=== PATIENT | male | born 1985 | race Caucasian/White ===

== ENCOUNTER 2019-10-11 22:19 | Inpatient (IN) | payer BC ==
[~2019-10-11] VITALS: Ht 175.3 cm; Wt 75.6 kg
[2019-10-11] MEDS ORDERED: VENL150C2 PO (22:30)
--- NOTE | 2019-10-11 22:30 | NUR ---
Dr. Noguera at bedside for MSE
[2019-10-11] MEDS ORDERED: PANTOPRAZOLE SODIUM 40 MG TABLET.DR PO ONE ×2 (22:51→23:00)
[2019-10-11] MEDS ORDERED: MAG HYDROX/AL HYDROX/SIMETH 30 ML LIQUID UDC ONE (22:51)
[2019-10-11] MEDS ORDERED: MAG HYDROX/AL HYDROX/SIMETH 30 ML LIQUID UDC PO ONE (23:00)
[2019-10-11] MEDS ORDERED: LIDOCAINE VISCUS 2% 15 ML UDC MM ONE (23:00)
[2019-10-11] MEDS ORDERED: ONDANSETRON ODT 4 MG TAB.RAPDIS ONE (23:04)
[2019-10-11] MEDS ORDERED: MORPHINE SULFATE 2 MG/1 ML DISP.SYRIN IV ONE (23:15)
[2019-10-11] MEDS ORDERED: ONDANSETRON 4 MG/2 ML VIAL IV ONE (23:15)
[2019-10-11] MEDS ORDERED: IV NORMAL SALINE 1000 ML BAG IV ONE (23:15)
[2019-10-11] MEDS ORDERED: ONDANSETRON ODT 4 MG TAB.RAPDIS SL ONE (23:15)
[2019-10-11] MEDS ORDERED: PANTOPRAZOLE SODIUM 40 MG VIAL IV ONE (23:15)
[2019-10-11] MEDS ORDERED: ONDANSETRON 4 MG/2 ML VIAL ONE (23:28)
[2019-10-11] MEDS ORDERED: PANTOPRAZOLE SODIUM 40 MG VIAL ONE (23:28)
[2019-10-11] MEDS ORDERED: MORPHINE SULFATE 2 MG/1 ML DISP.SYRIN ONE (23:28)
[2019-10-11 23:31] LABS: BASOPHILS % (AUTO) 0.3 % (0.0-2.0); EOSINOPHILS % (AUTO) 0.1 % (0.0-7.0); HEMOGLOBIN 15.1 g/dL (12.5-16.3); LYMPHOCYTES # (AUTO) 0.6 K/uL (20.0-40.0); LYMPHOCYTES % (AUTO) 3.6 % (20.5-51.5); MEAN CORPUSCULAR HGB CONC 34 g/dL (32.5-36.3); MEAN CORPUSCULAR VOLUME 90.1 fL (73.0-96.2); MONOCYTES # (AUTO) 0.7 K/uL (2.0-10.0); MONOCYTES % (AUTO) 4.3 % (0.0-11.0); NEUTROPHILS % (AUTO) 91.7 % (38.5-71.5); PLATELET COUNT (AUTO) 269 K/uL (152-348); RED BLOOD CELL COUNT(AUTO) 4.88 MIL/uL (4.06-5.63); WHITE BLOOD COUNT (AUTO) 16.3 K/uL (3.6-10.2)
[2019-10-12] MEDS ORDERED: MORPHINE SULFATE 4 MG/1 ML DISP.SYRIN IV ONE
[2019-10-12] MEDS ORDERED: MORPHINE SULFATE 4 MG/1 ML DISP.SYRIN ONE (00:03)
[2019-10-12] MEDS ORDERED: HYDROMORPHONE 1 MG/1 ML DISP.SYRIN ONE (00:30)
[2019-10-12] MEDS ORDERED: HYDROMORPHONE 1 MG/1 ML DISP.SYRIN IV ONE ×2 (00:30→02:45)
[2019-10-12 00:35] LABS: BILIRUBIN,DIRECT 0.1 mg/dL (0.0-0.2); BILIRUBIN,TOTAL 0.7 mg/dL (0.2-1.0); CREATININE 1.2 mg/dL (0.6-1.3); POTASSIUM 3.8 mmol/L (3.5-5.1); TOTAL PROTEIN, SERUM 7.7 g/dL (6.4-8.2)
[2019-10-12] MEDS ORDERED: IV NORMAL SALINE 1000 ML BAG IV ONE ×4 (01:15→14:58)
--- NOTE | 2019-10-12 02:08 | NUR ---
patient taken to CT scan via wheelchair in stable condition
--- NOTE | 2019-10-12 02:18 | NUR ---
Patient back from CT scan in stable condition. Fiance at bedside
[2019-10-12 02:35] VITALS: BP 118/60
[2019-10-12] MEDS ORDERED: PIPERACILLIN SODIUM/TAZOBACTAM 3.375 G in IV DEXTROSE 5% 50 ML IV ONE (02:45)
--- NOTE | 2019-10-12 02:45 | NUR ---
Dr. Noguera on the phone with Diane Plunkett NP
[2019-10-12] MEDS ORDERED: PIPERACILLIN/TAZOBACTAM/D5W 50 ML IV ONE (02:53)
[2019-10-12] MEDS ORDERED: HYDROCODONE/APAP 5-325MG TABLET PO PRN (03:00)
[2019-10-12] MEDS ORDERED: MAGNESIUM HYDROXIDE 30 ML LIQUID UDC PO PRN (03:00)
[2019-10-12] MEDS ORDERED: ACETAMINOPHEN 325 MG TABLET PO PRN (03:00)
[2019-10-12] MEDS ORDERED: ONDANSETRON 4 MG/2 ML VIAL IV PRN (03:00)
[2019-10-12] MEDS ORDERED: Z GUARD REMEDY PASTE 57 GM TUBE TOP PRN (03:00)
--- NOTE | 2019-10-12 03:44 | NUR ---
Pt. admitted to Med Surg , under care of Diane Plunkett MECHANICAL PRESS OPERATOR [employer] completed
--- NOTE | 2019-10-12 04:45 | NUR ---
NEW ADMIT Patient arrived via gurney and was able to ambulate to his bed. Patient is alert/oriented x3 and is complaining of pain 9/10. Patient has no significant medical history other than anxiety and depression, which is treated with prescribed Effexor, although patient is unsure of the dose he takes. Patient is Judaism and is requesting to see a instructional materials director prior to his surgery, but does not have a local [place]. I will have AM nurse followup with pocketbook maker to accommodate patient's request. All pertinent assessments have been completed. Patient is currently NPO and has scheduled lap appendectomy scheduled for 1330h today. Unable to obtain consent until patient has spoken with MD Quiles regarding the procedure. Will continue to monitor and assess.
[2019-10-12] MEDS: IV NS 1000 ML 1,000 ML IV PRN (05:14)
[2019-10-12] MEDS: HYDROMORPHONE 1 MG/1 ML DISP.SYRIN IV PRN ×4 (05:14→21:53)
[2019-10-12 06:35] LABS: BASOPHILS % (AUTO) 0.1 % (0.0-2.0); EOSINOPHILS % (AUTO) 0.1 % (0.0-7.0); HEMOGLOBIN 12.9 g/dL (12.5-16.3); LYMPHOCYTES # (AUTO) 0.8 K/uL (20.0-40.0); LYMPHOCYTES % (AUTO) 5.4 % (20.5-51.5); MEAN CORPUSCULAR HEMOGLOBIN 30.9 uug (23.8-33.4); MEAN CORPUSCULAR HGB CONC 34 g/dL (32.5-36.3); MEAN CORPUSCULAR VOLUME 90.8 fL (73.0-96.2); MONOCYTES # (AUTO) 0.8 K/uL (2.0-10.0); MONOCYTES % (AUTO) 5.6 % (0.0-11.0); NEUTROPHILS # (AUTO) 12.9 K/uL (1.8-8.9); NEUTROPHILS % (AUTO) 88.8 % (38.5-71.5); PLATELET COUNT (AUTO) 219 K/uL (152-348); RED BLOOD CELL COUNT(AUTO) 4.18 MIL/uL (4.06-5.63); WHITE BLOOD COUNT (AUTO) 14.5 K/uL (3.6-10.2)
[2019-10-12 06:50] LABS: MAGNESIUM 1.9 mg/dL (1.8-2.4); PHOSPHOROUS 3.8 mg/dL (2.5-4.9); POTASSIUM 4.2 mmol/L (3.5-5.1)
--- NOTE | 2019-10-12 07:37 | NUR ---
pt received in bed sleeping ,pt is axox4/vs are stable call light with in reach
[2019-10-12] MEDS ORDERED: PIPERACILLIN SODIUM/TAZOBACTAM 3.375 G in IV DEXTROSE 5% 50 ML IV SCH (08:00)
[2019-10-12] MEDS: PIPERACILLIN/TAZOBACTAM/D5W 3.375 G in IV DEXTROSE 5% 50 ML IV SCH ×3 (08:09→22:32)
[2019-10-12] MEDS ORDERED: LIDOCAINE HCL 1% 20 ML VIAL ONE (11:04)
[2019-10-12] MEDS ORDERED: BUPIVACAINE/EPI PF 0.25% 30 ML VIAL ONE (11:04)
[2019-10-12 11:24] VITALS: BP 98/53
--- NOTE | 2019-10-12 13:07 | NUR ---
pt is sleeping family at bed side
--- NOTE | 2019-10-12 13:08 | NUR ---
pt went to or via bed for surgery in stable condition
[2019-10-12] MEDS ORDERED: SEVOFLURANE 250 ML BOTTLE ONE (14:11)
[2019-10-12] MEDS ORDERED: BACITRACIN ZINC OINT 15 GM TUBE ONE (14:37)
[2019-10-12] MEDS ORDERED: PROPOFOL 200 MG/20 ML BOTTLE IV ONE (14:58)
[2019-10-12] MEDS ORDERED: LIDOCAINE-MPF 2% 5 ML VIAL IJ ONE (14:58)
[2019-10-12] MEDS ORDERED: ONDANSETRON 4 MG/2 ML VIAL IV ONE (14:58)
[2019-10-12] MEDS ORDERED: VECURONIUM BROMIDE 10 MG VIAL IV ONE (14:58)
[2019-10-12] MEDS ORDERED: NEOSTIGMINE METHYLSULFATE 10 MG/10 ML VIAL IM ONE (14:58)
[2019-10-12] MEDS ORDERED: DEXAMETHASONE SOD PHOSPHATE 4 MG INJ IV ONE (14:58)
[2019-10-12] MEDS ORDERED: SEVOFLURANE 250 ML BOTTLE IH ONE (14:58)
[2019-10-12] MEDS ORDERED: SUCCINYLCHOLINE CHLORIDE 200 MG/10 ML VIAL IV ONE (14:58)
[2019-10-12] MEDS ORDERED: GLYCOPYRROLATE 0.2 MG/ML VIAL IJ ONE (14:58)
--- NOTE | 2019-10-12 16:06 | NUR ---
pt received from recovery room by bed in stable condition.
[2019-10-12 16:10] VITALS: BP 106/56
[2019-10-12 16:28] VITALS: BP 105/57
[2019-10-12 19:46] VITALS: BP 98/60
--- NOTE | 2019-10-12 20:00 | NUR ---
Patient received into care, laying in bed, with fiance at bedside. Patient has no complaints of pain or discomfort at this time. IV fluids are infusing at 100mL/hr in left AC peripheral IV. All safety and fall precaution measures are in place. Call light and personal items are within reach at all times. Will continue to monitor and assess.
--- NOTE | 2019-10-12 20:05 | NUR ---
Notified by DAM TENDER ASSISTANT of elevated temp at 99.2. Initiated cooling measures.
--- NOTE | 2019-10-12 21:00 | NUR ---
Recheck of temperature reflects 98.5. Cooling measures stopped.
[2019-10-13] MEDS: HYDROCODONE/APAP 10-325 MG TABLET PO PRN ×4 (01:27→23:21)
[2019-10-13] MEDS: IV NS 1000 ML 1,000 ML IV PRN ×2 (03:40→23:21)
[2019-10-13] MEDS: PIPERACILLIN/TAZOBACTAM/D5W 3.375 G in IV DEXTROSE 5% 50 ML IV SCH ×2 (05:02→14:00)
[2019-10-13 05:10] VITALS: BP 98/60
--- NOTE | 2019-10-13 06:24 | NUR ---
Patient slept comfortably throughout night with complaints of pain addressed with prescribed analgesics, which were tolerated well with no adverse side effects noted or observed by nurse or verbalized by patient. Last analgesic given this shift was Calcium 10-325mg at 0130 and patient has had no further complaints of pain or discomfort. Patient has tolerated the clear liquid diet well, with no reports of nausea or vomiting. Patient reports passing flatus, but has had no bowel movement, however nurse can hear active bowel sounds throughout. Call light and personal items are within reach at all times. All safety and fall precaution measures remain in place.
[2019-10-13 06:40] LABS: BASOPHILS % (AUTO) 0.1 % (0.0-2.0); EOSINOPHILS # (AUTO) 0.1 K/uL (0.0-0.7); EOSINOPHILS % (AUTO) 0.4 % (0.0-7.0); HEMATOCRIT 36.9 % (36.7-47.1); HEMOGLOBIN 12.4 g/dL (12.5-16.3); LYMPHOCYTES # (AUTO) 1.5 K/uL (20.0-40.0); LYMPHOCYTES % (AUTO) 10.9 % (20.5-51.5); MEAN CORPUSCULAR HEMOGLOBIN 30.6 uug (23.8-33.4); MEAN CORPUSCULAR HGB CONC 34 g/dL (32.5-36.3); MEAN CORPUSCULAR VOLUME 91.1 fL (73.0-96.2); MONOCYTES # (AUTO) 1.2 K/uL (2.0-10.0); NEUTROPHILS % (AUTO) 79.6 % (38.5-71.5); PLATELET COUNT (AUTO) 222 K/uL (152-348); RED BLOOD CELL COUNT(AUTO) 4.05 MIL/uL (4.06-5.63); WHITE BLOOD COUNT (AUTO) 13.8 K/uL (3.6-10.2)
[2019-10-13 07:24] LABS: CREATININE 1.1 mg/dL (0.6-1.3); PHOSPHOROUS 3.1 mg/dL (2.5-4.9); POTASSIUM 3.8 mmol/L (3.5-5.1)
--- NOTE | 2019-10-13 07:54 | NUR ---
Awake, alert, oriented x 4, denies pain at this time. IVF infusing. Re instructed use of IS. Encourage ambulation
[2019-10-13] MEDS ORDERED: HYDR-3972 PO (08:32)
--- NOTE | 2019-10-13 09:00 | NUR ---
Ambulated in the hallway, passing gas, tolerating diet. Diet advance to soft diet for lunch
[2019-10-13] MEDS: PANTOPRAZOLE SODIUM 40 MG VIAL IV SCH (09:32)
[2019-10-13] MEDS: VENLAFAXINE XR 150 MG CAP.SR.24H PO SCH (09:36)
--- NOTE | 2019-10-13 09:42 | NUR ---
Complained of pain. [place] 1 tab po given with relief
[2019-10-13 11:09] VITALS: BP 121/55
--- NOTE | 2019-10-13 13:00 | NUR ---
Called and spoke with Dr. Quiles, discussed patient's condition and that he expressed wanting to go home. Went over lab report with elevated WBC, and no discharge clearance/order from Dr. Quiles. Patient informed and verbalized understanding.
[2019-10-13 15:27] VITALS: BP 94/48
--- NOTE | 2019-10-13 18:29 | NUR ---
Complained of pain, [place] 1 tab po given, resting after
--- NOTE | 2019-10-13 19:39 | NUR ---
Patient received into care, sitting up in bed talking, with family at bedside. Patient is alert/oriented x3 and has no complaints of pain or discomfort at this time. All safety and fall precaution measures are in place. Call light and personal items are within reach at all times. Will continue to monitor and assess.
[2019-10-13 19:42] VITALS: BP 142/37
[2019-10-13 19:43] VITALS: BP 106/59
[2019-10-14 05:15] VITALS: BP 105/60
--- NOTE | 2019-10-14 06:26 | NUR ---
Patient slept comfortably throughout night. Patient had on complaint of pain which was addressed with prescribed analgesics and was tolerated well with no adverse side effects verbalized by patient or noted/observed by nurse. VS have been WNL and patient remains stable. Call light and personal items remain within reach at all times. All safety and fall precautions remain within reach.
[2019-10-14 06:38] LABS: BASOPHILS % (AUTO) 0.7 % (0.0-2.0); EOSINOPHILS # (AUTO) 0.2 K/uL (0.0-0.7); EOSINOPHILS % (AUTO) 2.5 % (0.0-7.0); HEMATOCRIT 35.4 % (36.7-47.1); HEMOGLOBIN 11.9 g/dL (12.5-16.3); LYMPHOCYTES % (AUTO) 26.8 % (20.5-51.5); MEAN CORPUSCULAR HEMOGLOBIN 31.4 uug (23.8-33.4); MEAN CORPUSCULAR HGB CONC 34 g/dL (32.5-36.3); MEAN CORPUSCULAR VOLUME 93.5 fL (73.0-96.2); MONOCYTES # (AUTO) 0.8 K/uL (2.0-10.0); MONOCYTES % (AUTO) 11.2 % (0.0-11.0); NEUTROPHILS # (AUTO) 4.4 K/uL (1.8-8.9); NEUTROPHILS % (AUTO) 58.8 % (38.5-71.5); PLATELET COUNT (AUTO) 195 K/uL (152-348); RED BLOOD CELL COUNT(AUTO) 3.79 MIL/uL (4.06-5.63); WHITE BLOOD COUNT (AUTO) 7.5 K/uL (3.6-10.2)
[2019-10-14 06:39] LABS: BASOPHILS # (AUTO) 0.1 K/uL (0.0-8.0)
[2019-10-14 06:48] LABS: CREATININE 1.1 mg/dL (0.6-1.3); PHOSPHOROUS 3.8 mg/dL (2.5-4.9); POTASSIUM 4.2 mmol/L (3.5-5.1)
--- NOTE | 2019-10-14 07:46 | NUR ---
received pt. resting in bed alert oriented x4. IV in L AC 20 gauge intact patent running prescribed fluids. Pt. denies pain/ discomfort. Pt. denies SOB/ difficulty breathing. Educated pt. on importance of incentive spirometer and ambulation since post laparoscopic appendectomy. Pt. understands. Safety measures in place. Call light within reach. Will continue to monitor pt.
[2019-10-14 08:05] LABS: MAGNESIUM 1.7 mg/dL (1.8-2.4)
[2019-10-14] MEDS: VENLAFAXINE XR 150 MG CAP.SR.24H PO SCH (08:09)
[2019-10-14] MEDS: PANTOPRAZOLE SODIUM 40 MG VIAL IV SCH (08:09)
[2019-10-14 11:03] VITALS: BP 118/74
--- NOTE | 2019-10-14 11:24 | NUR ---
Pt. discharged home with kristopher. Pt. in stable condition. IV removed. ID band removed. Pt. understands discharge plans and to follow up with Dr. Quiles in 5 days. All belongings with pt.
[2019-10-14] MEDS ORDERED: MAGNESIUM OXIDE 400 MG TABLET PO ONE (11:30)
[2019-10-15] MEDS ORDERED: PANTOPRAZOLE SODIUM 40 MG TABLET.DR PO SCH (07:00)
== END 2019-10-14 11:22 | disposition home or self-care (01) | DRG 343 ==
LOC: ER 22:19 → MEDSURG3 10-12 04:28
PROVIDERS: ADMIT Nurse Practitioner Acute Care; ATTEND Registered Nurse
PROC: 0DTJ4ZZ Resection of Appendix, Percutaneous Endoscopic Approach (ICD-10-PCS; principal; 2019-10-12)
DX: K35.80 Unspecified acute appendicitis (principal); F32.9 Major depressive disorder, single episode, unspecified; F41.9 Anxiety disorder, unspecified; Z79.899 Other long term (current) drug therapy; Z82.49 Family history of ischemic heart disease and other diseases of the circulatory system
CPT/HCPCS: 36415; 83690; 83735; 84100; 85025; 85730; A4663; C9113; G0378; J0330; J1100; J1170; J2270; J2405; J2543; J2710; J3490; J7030; J7060; Q0162

== ENCOUNTER 2019-10-16 13:28 | Emergency (ER) | payer BC ==
[~2019-10-16] VITALS: Ht 175.3 cm; Wt 73.9 kg
[~2019-10-16 13:28] MED LIST: HYDR-3972 PO; VENL150C2 PO
[2019-10-16 14:19] LABS: BASOPHILS % (AUTO) 0.5 % (0.0-2.0); EOSINOPHILS # (AUTO) 0.1 K/uL (0.0-0.7); EOSINOPHILS % (AUTO) 2.1 % (0.0-7.0); HEMATOCRIT 44.6 % (36.7-47.1); HEMOGLOBIN 15.1 g/dL (12.5-16.3); LYMPHOCYTES # (AUTO) 1.3 K/uL (20.0-40.0); LYMPHOCYTES % (AUTO) 18.2 % (20.5-51.5); MEAN CORPUSCULAR HEMOGLOBIN 30.9 uug (23.8-33.4); MEAN CORPUSCULAR HGB CONC 34 g/dL (32.5-36.3); MEAN CORPUSCULAR VOLUME 91.4 fL (73.0-96.2); MONOCYTES # (AUTO) 0.5 K/uL (2.0-10.0); MONOCYTES % (AUTO) 7.4 % (0.0-11.0); NEUTROPHILS % (AUTO) 71.8 % (38.5-71.5); PLATELET COUNT (AUTO) 318 K/uL (152-348); RED BLOOD CELL COUNT(AUTO) 4.88 MIL/uL (4.06-5.63)
[2019-10-16 14:23] LABS: POTASSIUM 4.2 mmol/L (3.5-5.1)
[2019-10-16 14:28] LABS: BILIRUBIN,DIRECT 0.1 mg/dL (0.0-0.2); BILIRUBIN,TOTAL 0.6 mg/dL (0.2-1.0); TOTAL PROTEIN, SERUM 7.2 g/dL (6.4-8.2)
--- NOTE | 2019-10-16 15:57 | NUR ---
Patient discharged to home in stable conditon. Written and verbal after care instructions given. Patient verbalizes understanding of instructions. Patient ambulated with stable gait.
[2019-10-16 16:43] VITALS: BP 121/71
== END 2019-10-16 16:43 | disposition home or self-care (01) ==
LOC: ER 13:31
DX: Z48.01 Encounter for change or removal of surgical wound dressing (principal); F41.9 Anxiety disorder, unspecified; F32.9 Major depressive disorder, single episode, unspecified; Z90.49 Acquired absence of other specified parts of digestive tract; Z79.899 Other long term (current) drug therapy
CPT/HCPCS: 36415; 83690; 85025; A4663